=== PATIENT | female | born 1985 | race Hispanic/Latino ===

== ENCOUNTER 2023-06-02 08:40 | Inpatient (IN) | payer OTHER ==
[2023-05-25 14:38] LABS: BASOPHILS # (AUTO) 0.03 K/uL (0.00-0.20); BASOPHILS % (AUTO) 0.4 % (0.0-5.0); EOSINOPHILS # (AUTO) 0.17 K/uL (0.00-0.70); EOSINOPHILS % (AUTO) 2.1 % (0.0-8.0); HEMATOCRIT 35.7 % (36-48); IMMATURE GRANULOCYTE ABSOLUTE 0.04 K/uL (0-1); LYMPHOCYTES # (AUTO) 2.3 K/uL (1.0-4.8); LYMPHOCYTES % (AUTO) 29.2 % (21.0-51.0); MEAN CORPUSCULAR HEMOGLOBIN 28.3 pg (27.0-33.0); MEAN CORPUSCULAR HGB CONC 33.3 g/dL (32.0-36.0); MONOCYTES # (AUTO) 0.4 K/uL (0.1-1.0); MONOCYTES % (AUTO) 5.2 % (3.0-13.0); NEUTROPHILS % (AUTO) 62.6 % (40.0-77.0); PLATELET COUNT (AUTO) 306 K/uL (130-400); RED CELL DISTRIBUTION WIDTH 12.8 % (11.0-15.5); WHITE BLOOD COUNT (AUTO) 7.9 K/uL (4.8-10.8)
[2023-05-25 14:46] VITALS: BP 141/85; PULSE 84; RESP 16
[2023-05-25 15:12] LABS: ALBUMIN 3.4 g/dL (3.5-5.0); BILIRUBIN,TOTAL 0.2 mg/dL (0.2-1.0); CREATININE 0.8 mg/dL (0.5-1.5); POTASSIUM 3.9 mmol/L (3.5-5.1)
[~2023-06-02] VITALS: Ht 167.6 cm; Wt 112.4 kg
[2023-06-02] VITALS (26 sets, daily range): BP systolic 115–166; BP diastolic 62–93; PULSE 70–100; RESP 12–19; O2SAT 97–99
[~2023-06-02 08:40] MED LIST: LISI2.5T13 PO; METF-527 PO; MULT-1367 PO
[2023-06-02] MEDS ORDERED: 0.9%NACL 1000ML 1,000 ML IV ONE (08:58)
[2023-06-02] MEDS ORDERED: CEFAZOLIN SODIUM 1 GM VIAL ONE (08:58)
[2023-06-02] MEDS ORDERED: METRONIDAZOLE 500MG/100ML BAG 200 ML ONE (09:02)
[2023-06-02] MEDS ORDERED: HYDROMORPHONE 1 MG INJ ONE (11:38)
[2023-06-02] MEDS ORDERED: FAMOTIDINE 20MG VIAL IV ONE (11:38)
[2023-06-02] MEDS ORDERED: BUPIVACAINE/PF 0.5% 10ML VIAL ONE ×2 (11:58→12:22)
[2023-06-02] MEDS ORDERED: MIDAZOLAM HCL 1 MG/ML 2ML VIAL ONE (12:04)
[2023-06-02] MEDS ORDERED: PROPOFOL 10 MG/ML 20ML VIAL IV ONE ×2 (12:05→13:50)
[2023-06-02] MEDS ORDERED: ROCURONIUM 10MG/1ML SYR 10 MG/ML ML ONE (12:05)
[2023-06-02] MEDS ORDERED: LIDOCAINE PF 100MG/5ML (2%) SYRINGE 5ML ONE (12:05)
[2023-06-02] MEDS ORDERED: FENTANYL CITRATE PF 50 MCG/1 ML 2ML VIAL ONE ×2 (12:05→13:00)
[2023-06-02] MEDS ORDERED: ONDANSETRON 4MG INJ ONE ×2 (12:47→13:50)
[2023-06-02] MEDS ORDERED: METOPROLOL TARTRATE 1 MG/ML 5ML VIAL IV ONE (13:22)
[2023-06-02] MEDS ORDERED: DiphenhydrAMINE HCL 50 MG/ML VIAL ONE (13:47)
[2023-06-02] MEDS ORDERED: GLYCOPYRROLATE 1 MG/5 ML SYRINGE ONE (13:54)
[2023-06-02] MEDS ORDERED: NEOSTIGMINE 5MG/5ML SYR IV ONE (13:54)
[2023-06-02] MEDS ORDERED: HYDROCODONE/ACETAMINOPHEN 7.5/325 MG 15 ML UDCUP PO PRN (14:00)
[2023-06-02] MEDS ORDERED: PROCHLORPERAZINE 10MG/2ML INJ IV PRN (14:00)
[2023-06-02] MEDS ORDERED: ONDANSETRON 4MG INJ IVP PRN (14:00)
[2023-06-02] MEDS: ENOXAPARIN SODIUM 40 MG/0.4 ML SYRINGE SQ SCH (14:00)
[2023-06-02] MEDS ORDERED: MEPERIDINE-PF 25 MG/ML SYG ONE (14:32)
[2023-06-02] MEDS: MORPHINE 2 MG SYG IVP PRN ×2 (17:25→21:49)
[2023-06-02] MEDS: D5LR-20 MEQ KCL 1000 ML 1,000 ML IV SCH ×2 (17:38→20:40)
[2023-06-03] MEDS: ENOXAPARIN SODIUM 40 MG/0.4 ML SYRINGE SQ SCH (02:11)
[2023-06-03] MEDS: D5LR-20 MEQ KCL 1000 ML 1,000 ML IV SCH (02:18)
[2023-06-03 04:00] VITALS: BP 150/86; PULSE 75; RESP 16
[2023-06-03 08:00] VITALS: BP 150/90; PULSE 71; RESP 20; O2SAT 97
[2023-06-03] MEDS ORDERED: PANTOPRAZOLE 40 MG/VIAL IVP SCH (09:00)
[2023-06-03 12:00] VITALS: BP 163/89; PULSE 65; RESP 18
== END 2023-06-03 13:22 | disposition home or self-care (01) | DRG 621 ==
LOC: DAHIP 08:40 → 3BH 15:30
PROVIDERS: ADMIT Surgery; ATTEND Surgery
PROC: 0DJ08ZZ Inspection of Upper Intestinal Tract, Via Natural or Artificial Opening Endoscopic (ICD-10-PCS; 2023-06-02)
PROC: 0DB60Z3 Excision of Stomach, Open Approach, Vertical (ICD-10-PCS; principal; 2023-06-02 12:54)
PROC: 0DR Gastrointestinal System, Replacement (ICD-10-PCS; 2023-06-02 12:54)
PROC: 8E0W0CZ Robotic Assisted Procedure of Trunk Region, Open Approach (ICD-10-PCS; 2023-06-02 12:54)
DX: E66.01 Morbid (severe) obesity due to excess calories (principal); K44.9 Diaphragmatic hernia without obstruction or gangrene; I10 Essential (primary) hypertension; G47.33 Obstructive sleep apnea (adult) (pediatric); E11.9 Type 2 diabetes mellitus without complications; Z68.41 Body mass index [BMI] 40.0-44.9, adult; Z79.899 Other long term (current) drug therapy
CPT/HCPCS: 36415; 43235; 80053; 81025; 82948; 84703; 85025; 86850; 86900; 86901; 93005; C9113; G0378; J0690; J1170; J1200; J1650; J2001; J2175; J2250; J2270; J2405; J2704; J2710; J3010; J3480; J3490; J7030; A4215; A4221; A4222; A4223; A4600; A4663; A6260; G8980-CI; G8983-CI